=== PATIENT | male | born 1955 | race African-American/Black ===

== ENCOUNTER 2017-01-02 12:55 | Inpatient (IN) | payer MEDICAID ==
[~2017-01-02] VITALS: Ht 190.5 cm; Wt 107.3 kg
[2017-01-02 14:07] LABS: GLUCOSE,POINT OF CARE 101 MG/DL (70-110)
[2017-01-02 14:23] LABS: BASOPHILS # (AUTO) 0.04 K/uL (0.00-0.20); BASOPHILS % (AUTO) 0.8 % (0.0-2.0); EOSINOPHILS # (AUTO) 0.06 K/uL (0.00-0.70); EOSINOPHILS % (AUTO) 1.31 % (1.0-6.0); HEMOGLOBIN 14.7 g/dL (13.5-17.5); LYMPHOCYTES # (AUTO) 1.6 K/uL (1.0-4.8); LYMPHOCYTES % (AUTO) 36.7 % (22.0-44.0); MEAN CORPUSCULAR HGB CONC 31.3 G/dL (31.0-37.0); MEAN CORPUSCULAR VOLUME 70 fL (80-100); MONOCYTES # (AUTO) 0.3 K/uL (0.1-1.0); MONOCYTES % (AUTO) 6.8 % (2.0-9.0); NEUTROPHILS # (AUTO) 2.4 K/uL (1.8-7.7); NEUTROPHILS % (AUTO) 54.4 % (40.0-70.0); PLATELET COUNT (AUTO) 185 K/uL (150-450); RED BLOOD CELL COUNT(AUTO) 6.69 MIL/uL (4.50-5.90); RED CELL DISTRIBUTION WIDTH 16.3 % (11.5-14.5); WHITE BLOOD COUNT (AUTO) 4.4 K/uL (4.5-11.0)
[2017-01-02 14:28] LABS: ANION GAP 7 mmol/L (8-16); CALCIUM, TOTAL 9.3 mg/dL (8.8-10.5); CARBON DIOXIDE 34 mmol/L (22-29); CHLORIDE 104 mmol/L (98-107); CREATININE 1.65 mg/dL (0.60-1.30); GLOMERULAR FILTR. RATE CALC 52 mL/min (>60); POTASSIUM 3.6 mmol/L (3.5-5.1); SODIUM SERUM 145 mmol/L (136-145); UREA NITROGEN, BLOOD 19 mg/dL (7-18)
[2017-01-02 14:32] LABS: INR 0.9 (0.9-1.1)
[2017-01-02 14:34] LABS: ALANINE AMINOTRANSFERASE 35 U/L (12-78); ALBUMIN 3.9 g/dL (3.4-5.0); ASPARTATE AMINOTRANSFERASE 22 U/L (15-37); BILIRUBIN,TOTAL 0.4 mg/dL (0.1-1.0); TOTAL PROTEIN, SERUM 8.5 g/dL (6.4-8.2)
[2017-01-02] MEDS ORDERED: SODIUM CHLORIDE 0.9% 1,000 ML IV ONE (14:45)
[2017-01-02 14:54] LABS: RBC MORPHOLOGY COMMENT ABNORMAL RBC MORPH
[2017-01-02 15:00] LABS: TROPONIN I < 0.02 ng/mL (0.00-0.05)
[2017-01-02 15:06] LABS: AMMONIA 24 umol/L (11-32)
[2017-01-02 15:16] LABS: APPEARANCE,URINE CLEAR (CLEAR); GLUCOSE, URINE (UA) NEGATIVE (NEGATIVE); KETONES,URINE NEGATIVE (NEGATIVE); LEUKOCYTE ESTERASE ,URINE SMALL (NEGATIVE); OCCULT BLOOD,URINE NEGATIVE (NEGATIVE); PROTEIN,URINE POS 1+ (NEGATIVE)
[2017-01-02 15:27] LABS: RBC,URINE None Seen /HPF (0-2)
[2017-01-02 15:28] LABS: RENAL EPITHELIAL CELLS,URINE Few /LPF (None Seen); SQUAMOUS EPITHELIAL CELL,UR Few /LPF (None Seen)
[2017-01-02 16:35] LABS: CREATINE KINASE, TOTAL 242 U/L (39-308)
[2017-01-02 16:37] LABS: ACETAMINOPHEN < 2 mcg/mL (10-30)
[2017-01-02 16:38] LABS: SALICYLATE 0.3 mg/dL (2.8-20.0)
[2017-01-02 17:06] LABS: CREATINE KINASE MB 1.4 ng/mL (0-5)
[2017-01-02] MEDS ORDERED: 0.9% SODIUM CHLORIDE 10 ML SYRINGE IVP PRN ×2 (17:15→18:30)
[2017-01-02] MEDS ORDERED: ONDANSETRON HCL 4 MG/2 ML VIAL IVP PRN ×2 (17:15→18:30)
[2017-01-02] MEDS ORDERED: ACETAMINOPHEN 325 MG TABLET PO PRN ×2 (17:15→18:30)
[2017-01-02] MEDS ORDERED: ASPIRIN 81 MG CHEWABLE TABLET PO ONE (18:00)
[2017-01-02] MEDS ORDERED: IPRATROPIUM BROMIDE 0.5 MG/2.5 ML NEB SOLUTION NEB PRN (18:30)
[2017-01-02] MEDS ORDERED: HYDROCODONE/ACETAMINOPHEN 5-325 MG TABLET PO PRN (18:30)
[2017-01-02] MEDS ORDERED: ALBUTEROL SULFATE 2.5 MG/0.5 ML NEB SOLUTION NEB PRN (18:30)
[2017-01-02] MEDS ORDERED: MAGNESIUM HYDROXIDE SUSPENSION 30 ML UDCUP PO PRN (18:30)
[2017-01-02] MEDS ORDERED: BISACODYL 10 MG RECTAL RECTAL SUPPOSITORY PR PRN (18:30)
[2017-01-02] MEDS ORDERED: MORPHINE SULFATE 2 MG/ML SYRINGE IVP PRN (18:30)
[2017-01-02 18:40] VITALS: BP 167/93
[2017-01-02] MEDS: ASPIRIN 81 MG EC TABLET PO SCH (18:55)
[2017-01-02 19:29] VITALS: BP 172/86
[2017-01-02] MEDS: DOCUSATE SODIUM 100 MG CAPSULE PO SCH (22:55)
[2017-01-02] MEDS: HEPARIN SODIUM,PORCINE 5,000 UNITS/ML VIAL SQ SCH (23:09)
[2017-01-02 23:59] VITALS: BP 161/89
[2017-01-03 04:40] VITALS: BP 153/87
[2017-01-03 06:00] LABS: BASOPHILS % (AUTO) 0.6 % (0.0-2.0); EOSINOPHILS % (AUTO) 1.6 % (1.0-6.0); HEMATOCRIT 44.5 % (41-53); HEMOGLOBIN 14.5 g/dL (13.5-17.5); LYMPHOCYTES # (AUTO) 1.6 K/uL (1.0-4.8); MEAN CORPUSCULAR HEMOGLOBIN 22.6 pg (26.0-34.0); MEAN CORPUSCULAR HGB CONC 32.5 G/dL (31.0-37.0); MEAN CORPUSCULAR VOLUME 69 fL (80-100); MONOCYTES # (AUTO) 0.3 K/uL (0.1-1.0); MONOCYTES % (AUTO) 6.5 % (2.0-9.0); NEUTROPHILS # (AUTO) 2.1 K/uL (1.8-7.7); NEUTROPHILS % (AUTO) 51.3 % (40.0-70.0); PLATELET COUNT (AUTO) 192 K/uL (150-450); RED CELL DISTRIBUTION WIDTH 15.7 % (11.5-14.5)
[2017-01-03 06:38] LABS: ANION GAP 9 mmol/L (8-16); CALCIUM, TOTAL 8.8 mg/dL (8.8-10.5); CARBON DIOXIDE 28 mmol/L (22-29); CHLORIDE 103 mmol/L (98-107); CREATININE 1.43 mg/dL (0.60-1.30); GLOMERULAR FILTR. RATE CALC > 60 mL/min (>60); PHOSPHORUS 3.3 mg/dL (2.5-4.9); POTASSIUM 3.2 mmol/L (3.5-5.1); SODIUM SERUM 140 mmol/L (136-145); UREA NITROGEN, BLOOD 15 mg/dL (7-18)
[2017-01-03 07:25] LABS: RBC MORPHOLOGY COMMENT ABNORMAL RBC MORPH
[2017-01-03 07:35] VITALS: BP 158/91
[2017-01-03] MEDS ORDERED: POTASSIUM CHLORIDE 10% 40 MEQ/30 ML LIQUID UDCUP PO ONE (08:00)
[2017-01-03] MEDS: HEPARIN SODIUM,PORCINE 5,000 UNITS/ML VIAL SQ SCH ×2 (08:31→15:53)
[2017-01-03] MEDS: DOCUSATE SODIUM 100 MG CAPSULE PO SCH ×2 (08:32→20:06)
[2017-01-03] MEDS: ATORVASTATIN CALCIUM 20 MG TABLET PO SCH (08:32)
[2017-01-03] MEDS: ASPIRIN 81 MG EC TABLET PO SCH (08:32)
[2017-01-03] MEDS: PANTOPRAZOLE SODIUM 40 MG DR TABLET PO SCH (08:32)
[2017-01-03 11:22] VITALS: BP 171/104
[2017-01-03] MEDS ORDERED: SODIUM CHLORIDE 0.9% 250 ML IV ONE (15:12)
[2017-01-03 15:52] VITALS: BP 173/87
[2017-01-03] MEDS: CefTRIAXone 1 GM/DEXTROSE 50 ML IV SCH (15:53)
[2017-01-03] MEDS ORDERED: INFLUENZA VIRUS VACCINE QVS 2017-18 (3YR+)/PF 60 MCG/0.5 ML SYRINGE IM ONE (19:30)
[2017-01-03] MEDS ORDERED: PNEUMOCOCCAL VACCINE POLYVALENT 0.5 ML VIAL [PPSV23] IM ONE (19:30)
[2017-01-03 19:38] VITALS: BP 164/87
[2017-01-04] VITALS (8 sets, daily range): BP systolic 148–178; BP diastolic 70–98
[2017-01-04] MEDS: HEPARIN SODIUM,PORCINE 5,000 UNITS/ML VIAL SQ SCH ×3 (00:45→15:01)
[2017-01-04] MEDS: ASPIRIN 81 MG EC TABLET PO SCH (08:48)
[2017-01-04] MEDS: DOCUSATE SODIUM 100 MG CAPSULE PO SCH ×2 (08:48→22:05)
[2017-01-04] MEDS: PANTOPRAZOLE SODIUM 40 MG DR TABLET PO SCH (08:48)
[2017-01-04] MEDS: ATORVASTATIN CALCIUM 20 MG TABLET PO SCH (08:48)
[2017-01-04] MEDS: CefTRIAXone 1 GM/DEXTROSE 50 ML IV SCH (14:50)
[2017-01-05] VITALS (8 sets, daily range): BP systolic 141–189; BP diastolic 71–97
[2017-01-05] MEDS: HEPARIN SODIUM,PORCINE 5,000 UNITS/ML VIAL SQ SCH ×3 (00:38→17:48)
[2017-01-05 08:35] LABS: MAGNESIUM 2.2 mg/dL (1.80-2.40); PHOSPHORUS 3.1 mg/dL (2.5-4.9)
[2017-01-05] MEDS: DOCUSATE SODIUM 100 MG CAPSULE PO SCH ×2 (08:37→22:04)
[2017-01-05] MEDS: ATORVASTATIN CALCIUM 20 MG TABLET PO SCH (08:38)
[2017-01-05] MEDS: ASPIRIN 81 MG EC TABLET PO SCH (08:38)
[2017-01-05] MEDS: PANTOPRAZOLE SODIUM 40 MG DR TABLET PO SCH (08:38)
[2017-01-05] MEDS: CefTRIAXone 1 GM/DEXTROSE 50 ML IV SCH (15:12)
[2017-01-05] MEDS ORDERED: AmLODIPine BESYLATE 5 MG TABLET PO SCH (16:15)
[2017-01-05] MEDS ORDERED: HydrALAZINE HCL 20 MG/ML VIAL IVP PRN (19:15)
[2017-01-05] MEDS ORDERED: AmLODIPine BESYLATE 5 MG TABLET PO ONE (19:15)
[2017-01-05] MEDS: METOPROLOL TARTRATE 25 MG TABLET PO SCH (22:04)
[2017-01-06 04:37] VITALS: BP 154/90
[2017-01-06 07:42] VITALS: BP 152/77
[2017-01-06] MEDS: DOCUSATE SODIUM 100 MG CAPSULE PO SCH ×2 (09:00→20:53)
[2017-01-06] MEDS: METOPROLOL TARTRATE 25 MG TABLET PO SCH ×2 (09:00→20:53)
[2017-01-06] MEDS: ATORVASTATIN CALCIUM 20 MG TABLET PO SCH (09:05)
[2017-01-06] MEDS: AmLODIPine BESYLATE 10 MG TABLET PO SCH (09:05)
[2017-01-06] MEDS: PANTOPRAZOLE SODIUM 40 MG DR TABLET PO SCH (09:05)
[2017-01-06] MEDS: ASPIRIN 81 MG EC TABLET PO SCH (09:05)
[2017-01-06] MEDS: HEPARIN SODIUM,PORCINE 5,000 UNITS/ML VIAL SQ SCH ×3 (09:05→16:54)
[2017-01-06 09:45] LABS: CALCIUM, TOTAL 9.4 mg/dL (8.8-10.5); CREATININE 1.62 mg/dL (0.60-1.30); POTASSIUM 4.1 mmol/L (3.5-5.1)
[2017-01-06 11:28] VITALS: BP 162/90
[2017-01-06] MEDS ORDERED: IODIXANOL 320 MG/ML 150 ML VIAL ONE (13:04)
[2017-01-06] MEDS: CefTRIAXone 1 GM/DEXTROSE 50 ML IV SCH (15:05)
[2017-01-06 15:36] VITALS: BP 154/89
[2017-01-06 19:10] VITALS: BP 161/88
[2017-01-06 23:54] VITALS: BP 148/89
[2017-01-07 03:59] VITALS: BP 146/85
[2017-01-07 07:22] VITALS: BP 153/70
[2017-01-07] MEDS: DOCUSATE SODIUM 100 MG CAPSULE PO SCH (09:25)
[2017-01-07] MEDS: HEPARIN SODIUM,PORCINE 5,000 UNITS/ML VIAL SQ SCH ×3 (09:25→16:00)
[2017-01-07] MEDS: AmLODIPine BESYLATE 10 MG TABLET PO SCH (09:25)
[2017-01-07] MEDS: PANTOPRAZOLE SODIUM 40 MG DR TABLET PO SCH (09:25)
[2017-01-07] MEDS: METOPROLOL TARTRATE 25 MG TABLET PO SCH (09:26)
[2017-01-07] MEDS: ATORVASTATIN CALCIUM 20 MG TABLET PO SCH (09:26)
[2017-01-07] MEDS: ASPIRIN 81 MG EC TABLET PO SCH (09:26)
[2017-01-07 11:29] VITALS: BP 159/96
[2017-01-07] MEDS ORDERED: ATOR20TA86 PO (12:27)
[2017-01-07] MEDS ORDERED: ASPI-1182 PO (12:27)
[2017-01-07] MEDS ORDERED: CIPR-278 PO (12:29)
[2017-01-07] MEDS ORDERED: AMLO-512 PO (12:29)
[2017-01-07] MEDS ORDERED: METO25 PO (12:30)
[2017-01-07] MEDS: CefTRIAXone 1 GM/DEXTROSE 50 ML IV SCH (15:09)
[2017-01-07 15:13] VITALS: BP 157/90
[2017-01-07] MEDS ORDERED: LEVO500 PO (16:39)
== END 2017-01-07 19:00 | disposition home or self-care (01) | DRG 45 ==
LOC: EMS 12:56 → 5S 18:22 → EMS 18:26
PROVIDERS: ADMIT Hospitalist; ATTEND Hospitalist
DX: I63.9 Cerebral infarction, unspecified (principal); N18.4 Chronic kidney disease, stage 4 (severe); F03.90 Unspecified dementia, unspecified severity, without behavioral disturbance, psychotic disturbance, mood disturbance, and anxiety; I16.0 Hypertensive urgency; I12.9 Hypertensive chronic kidney disease with stage 1 through stage 4 chronic kidney disease, or unspecified chronic kidney disease; Z86.73 Personal history of transient ischemic attack (TIA), and cerebral infarction without residual deficits
CPT/HCPCS: 70450; 70496; 70551; 76770; 82570; 82607; 82948; 82962; 83735; 84100; 84132; 84300; 84443; 86592; 87086; 87389; 90471; 93005; 93306; 97112; 97116; 97162; 97530; 99285; G0480; G0481; J0696; J1644; J7030; J7050; Q9967